=== PATIENT | female | born 1965 | race Caucasian/White ===

== ENCOUNTER 2017-04-22 00:34 | Inpatient (IN) | payer OTHER ==
[~2017-04-22] VITALS: Ht 165.1 cm; Wt 60.3 kg
--- NOTE | 2017-04-22 00:50 | NUR ---
ERMD AT BEDSIDE TO EVALUATE PT.ERMD STATES HER INITIAL ASSESSMENT OF PTS FOOT IS BRUISED AND SWOLLEN.UNSURE IF CAUSED BY INFECTION OR SOME TYPE OF TRAUMA.
--- NOTE | 2017-04-22 00:55 | NUR ---
pt presents with right foot swelling - pt reports its been this way for a couple of days - small darker area of redness noted at center of area of swelling - vs and ns wnl - pt reports pain at site and general nausea
[2017-04-22] MEDS ORDERED: ONDANSETRON ODT 4 MG TAB.RAPDIS SL ONE (01:00)
[2017-04-22] MEDS ORDERED: HYDROCODONE/APAP 5-325MG TABLET PO ONE ×2 (01:15→04:00)
[2017-04-22] MEDS ORDERED: ONDANSETRON ODT 4 MG TAB.RAPDIS ONE (01:21)
[2017-04-22] MEDS ORDERED: HYDROCODONE/APAP 5-325MG TABLET ONE ×2 (01:29→04:12)
[2017-04-22 02:22] LABS: BILIRUBIN,DIRECT 0.2 mg/dL (0.0-0.2); BILIRUBIN,TOTAL 0.5 mg/dL (0.2-1.0); CREATININE 1.2 mg/dL (0.6-1.3); POTASSIUM 3.1 mmol/L (3.5-5.1); TOTAL PROTEIN, SERUM 8.2 g/dL (6.4-8.2)
[2017-04-22 02:30] LABS: BASOPHILS % (AUTO) 0.1 % (0.0-2.0); EOSINOPHILS % (AUTO) 0.1 % (0.0-7.0); HEMATOCRIT 32.2 % (31.2-41.9); LYMPHOCYTES # (AUTO) 1.1 K/uL (20.0-40.0); LYMPHOCYTES % (AUTO) 3.4 % (20.5-51.5); MEAN CORPUSCULAR HEMOGLOBIN 31.1 uug (24.7-32.8); MEAN CORPUSCULAR HGB CONC 34 g/dL (32.3-35.6); MONOCYTES # (AUTO) 2.2 K/uL (2.0-10.0); MONOCYTES % (AUTO) 7.1 % (0.0-11.0); NEUTROPHILS # (AUTO) 27.8 K/uL (1.8-8.9); NEUTROPHILS % (AUTO) 89.3 % (38.5-71.5); PLATELET COUNT (AUTO) 458 K/uL (179-408); RED BLOOD CELL COUNT(AUTO) 3.54 MIL/uL (3.63-4.92)
[2017-04-22 02:46] LABS: WHITE BLOOD COUNT (AUTO) 31.2 K/uL (3.8-11.8)
[2017-04-22] MEDS ORDERED: PIPERACILLIN SODIUM/TAZOBACTAM 3.375 G in IV DEXTROSE 5% 50 ML IV ONE (03:00)
[2017-04-22] MEDS ORDERED: VANCOMYCIN IV 200 ML IV ONE (03:00)
[2017-04-22] MEDS ORDERED: IV NORMAL SALINE 1000 ML BAG IV ONE (03:00)
--- NOTE | 2017-04-22 03:15 | NUR ---
Pt's lab results reporting - wbc elevated - new orders received for IV and antibiotics - new iv site placed RFA #20 - saline locked - NS up at 300 ml/hour - starting antibiotics as per order - pt denies allergies to any antibiotics - tolerating infusion uneventful - close observation contnues
[2017-04-22] MEDS ORDERED: PIPERACILLIN/TAZOBACTAM/D5W 50 ML IV ONE (03:39)
[2017-04-22] MEDS ORDERED: VANCOMYCIN IV 200 ML ONE (03:39)
[2017-04-22 04:00] VITALS: BP 124/80
--- NOTE | 2017-04-22 04:00 | NUR ---
pt reporting pain returning to 9 out of 10 from a previous 7 ( post po med for pain ) pt medicated again per order - vs and ns and all sites same - med effect pending
--- NOTE | 2017-04-22 04:05 | NUR ---
zosyn complete - Vnacomycin one gram ivpb in 200 ml started at 130 ml/hour - effect pending - vs and ns and all sites same
--- NOTE | 2017-04-22 04:06 | NUR ---
confirmation vancomycin to be one gram iv - started infusing
[2017-04-22] MEDS ORDERED: MAGNESIUM HYDROXIDE 30 ML LIQUID UDC PO PRN (05:15)
[2017-04-22] MEDS ORDERED: MORPHINE SULFATE 2 MG/1 ML DISP.SYRIN IV PRN (05:15)
[2017-04-22] MEDS ORDERED: ONDANSETRON 4 MG/2 ML VIAL IV PRN (05:15)
[2017-04-22] MEDS ORDERED: Z GUARD REMEDY PASTE 57 GM TUBE TOP PRN (05:15)
--- NOTE | 2017-04-22 05:20 | NUR ---
report provided to Epi ( Rn ) - pt to be admitted to Tele - room 224 - reviewed hx - presentation - and interventions provided and resultant effect - pt conversing uneventfully without grimace - vs and ns all sites consistant - recent conversations between our ER MD ( Dr Del Rosario ) and [facility] MD ( Dr Booth ) with resultant discussion regarding pt's stability - both agree to admit pt to [place] to assure pt's stability - pt reports low cost inventory in purse - nagy counted + 2 cell phones + cloths
--- NOTE | 2017-04-22 05:40 | NUR ---
confirmed with ER MD pt does not meet code sepsis per lactic acid level - antibiotics complete - saline bolus initated afterward - pt with without change
--- NOTE | 2017-04-22 05:47 | NUR ---
Pt. admitted to TELEMETRY, ROOM 224 , under care of DRAKE BOLDEN NP Belongs List completed. DX RLE CELLULITIS/SEPSIS
[2017-04-22] MEDS: IV NS 1000 ML 1,000 ML IV PRN (05:56)
[2017-04-22 06:09] LABS: BAND % (MANUAL) 5 % (0-10); LYMPHOCYTES % (MANUAL) 6 % (20-40); MONOCYTES % (MANUAL) 7 % (2-10); NEUTROPHILS % (MANUAL) 82 % (42-75)
--- NOTE | 2017-04-22 07:00 | NUR ---
Admitted this 51 y/o female patient via gurney, awake alert oriented, no SOB denies chest pain. Placed on Telemetry as ordered Dx. Sepsis, Right foot cellulitis. Sinus rhythm sinus tachy on the monitor. Initial assessment & personal belongings checklist done. Patient still c/o right foot pain, 10/10 level of pain. Right foot swelling noted, no open wound. Medicated w/ Morphine 2mg IVP as ordered. IVF NS at 75 ml/hr started. Right wrist IV line intact no signs of infiltrations. Vital signs are stable, afebrile. Will continue to monitor.
--- NOTE | 2017-04-22 07:20 | NUR ---
RECEIVED REPORT FROM LEARNING DISABILITIES SPECIALIST NURSE, PATIENT IN BED AWAKE, CRYING DUE TO PAIN. PATIENT HAD ALREADY RECEIVED PAIN MEDICATION. BED IN LOW POSITION, SIDE RAILS UP X2. ALL NEEDS MET, OFFERED PILLOWS TO ELEVATE FOOT.
[2017-04-22] MEDS: PIPERACILLIN/TAZOBACTAM/D5W 50 ML IV SCH ×3 (09:07→20:26)
[2017-04-22] MEDS: LACTOBACILLUS RHAMNOSUS GG 1 EACH CAPSULE PO SCH ×2 (09:08→20:35)
--- NOTE | 2017-04-22 09:49 | NUR ---
Clinical Pharmacy Note: Vancomycin Pharmacy to Dose Subjective; To start vanco in this 51 y/o female for indication of cellulitis. She received vanco 1gm IVPB x1 in Ed on 04/22 at 0400 Objective: height: 65'' weight: 133 lb BUN 15 Scr 1.2 wbc 31.2 temp 98.5 Assessment/Plan Will start vanco 1gm IVPB q22h for predicted vanco trough level of 15.5 mcg/ml at steady state. Second dose is due on 04/23 at 0200. Plan to check vano trough level before 4th dose (not yet ordered). Pharmacy will check renal function & adjust dose if needed
[2017-04-22] MEDS: MORPHINE SULFATE 4 MG/1 ML DISP.SYRIN IV PRN ×3 (10:05→20:26)
[2017-04-22] MEDS ORDERED: ENOXAPARIN SODIUM 30 MG/0.3 ML DISP.SYRIN SUBCUT SCH (10:30)
[2017-04-22 11:03] VITALS: BP 121/80
[2017-04-22] MEDS: ENOXAPARIN SODIUM 40 MG/0.4 ML DISP.SYRIN SQ SCH (11:43)
[2017-04-22] MEDS: POTASSIUM CHLORIDE 10 MEQ, LIDOCAINE-MPF 1% 1 ML in IV DEXTROSE 5% 100 ML IV SCH ×4 (12:19→13:53)
[2017-04-22] MEDS: IBUPROFEN 400 MG TABLET PO PRN ×2 (13:12→23:58)
[2017-04-22 15:10] VITALS: BP 129/75
[2017-04-22 17:58] LABS: *BILIRUBIN,URIN NEGATIVE (NEGATIVE); *BLOOD, URINE 1+ (NEGATIVE); *CLARITY,URINE SLIGHTLY CLOUDY (CLEAR); *COLOR,URINE YELLOW (YELLOW); *KETONES,URINE NEGATIVE (NEGATIVE); *PROTEIN,URINE TRACE (NEGATIVE); LEUKOCYTE ESTERASE ,URINE 2+ (NEGATIVE); NITRITE, URINE NEGATIVE (NEGATIVE); UGLUCOSE NEGATIVE (NEGATIVE)
[2017-04-22 18:10] LABS: BACTERIA,URINE FEW /HPF (NONE SEEN); SQUAMOUS EPITHELIAL CELL,UR MODERATE /HPF (NONE SEEN); WBC,URINE 20-50 /HPF (0-3)
--- NOTE | 2017-04-22 19:41 | NUR ---
Patient currently in bed, compliant with care today. Eating meals and being sarcastic, taking medications. Bed in low position, side rails up x2, sitter at bedside.
[2017-04-22 20:24] VITALS: BP 132/68
[2017-04-23 00:22] VITALS: BP 137/71
[2017-04-23] MEDS: MORPHINE SULFATE 4 MG/1 ML DISP.SYRIN IV PRN ×6 (01:22→21:57)
[2017-04-23] MEDS: IV NS 1000 ML 1,000 ML IV PRN (01:22)
[2017-04-23] MEDS ORDERED: VANCOMYCIN IV 1 G in PREMIXED 0 EACH IV SCH (02:00)
[2017-04-23] MEDS: PIPERACILLIN/TAZOBACTAM/D5W 50 ML IV SCH ×3 (03:12→14:07)
[2017-04-23 04:00] VITALS: BP 114/57
[2017-04-23] MEDS: PANTOPRAZOLE SODIUM 40 MG TABLET.DR PO SCH (06:00)
--- NOTE | 2017-04-23 06:00 | NUR ---
Pt slept well, in no distress, no sob. Patient c/o of pain on right foot. Right foot red, swollen, no drainage noted. Left cheek small wound noted with no drainage. Pain med administered as ordered. IVF infusing, no infiltration. Patient uses the bed monsivais. Bed alarm on, will continue to monitor.
[2017-04-23 06:14] LABS: BASOPHILS % (AUTO) 0.2 % (0.0-2.0); EOSINOPHILS # (AUTO) 0.1 K/uL (0.0-0.7); EOSINOPHILS % (AUTO) 0.5 % (0.0-7.0); HEMOGLOBIN 10.5 g/dL (10.9-14.3); LYMPHOCYTES % (AUTO) 3.2 % (20.5-51.5); MEAN CORPUSCULAR HEMOGLOBIN 30.6 uug (24.7-32.8); MEAN CORPUSCULAR HGB CONC 34 g/dL (32.3-35.6); MEAN CORPUSCULAR VOLUME 90.2 fL (75.5-95.3); MONOCYTES # (AUTO) 1.4 K/uL (2.0-10.0); MONOCYTES % (AUTO) 4.8 % (0.0-11.0); NEUTROPHILS # (AUTO) 27.5 K/uL (1.8-8.9); NEUTROPHILS % (AUTO) 91.3 % (38.5-71.5); PLATELET COUNT (AUTO) 390 K/uL (179-408); RED BLOOD CELL COUNT(AUTO) 3.44 MIL/uL (3.63-4.92)
[2017-04-23] MEDS ORDERED: MORPHINE SULFATE 2 MG/1 ML DISP.SYRIN ONE (06:14)
--- NOTE | 2017-04-23 06:20 | NUR ---
Critical lab WBC 30.1 reported by Shemar from Lab. Protocol followed. Pt is asleep, easily arousable, no distress, no SOB. Temp 99.3F. Cooling measures done. Will continue to monitor.
[2017-04-23 06:23] LABS: WHITE BLOOD COUNT (AUTO) 30.1 K/uL (3.8-11.8)
[2017-04-23 06:31] LABS: CARBON DIOXIDE 24 mmol/L (21-32); CHLORIDE 100 mmol/L (98-107); CHOLESTEROL 81 mg/dL (<200); GLUCOSE 187 mg/dL (74-106); MAGNESIUM 2.3 mg/dL (1.8-2.4); PHOSPHOROUS 2.5 mg/dL (2.5-4.9); TRIGLYCERIDES 96 MG/DL (30-150); UREA NITROGEN, BLOOD 13 mg/dL (7-18)
[2017-04-23 06:32] LABS: HDL CHOLESTEROL < 10 mg/dL (40-60)
[2017-04-23 06:37] LABS: THYROID STIMULATING HORMONE 0.935 mIU/mL (0.358-3.740)
[2017-04-23 06:59] LABS: BAND % (MANUAL) 12 % (0-10); LYMPHOCYTES % (MANUAL) 1 % (20-40); MONOCYTES % (MANUAL) 2 % (2-10); NEUTROPHILS % (MANUAL) 85 % (42-75)
--- NOTE | 2017-04-23 08:00 | NUR ---
RECEIVED PATIENT IN BED AWAKE ALERT AND ORIENTED RIGHT FOOT SWOLLEN WITH ERYTHEMA ELEVATED ON THE PILLOW AND PATIENT ENCOURAGED TO KEEP LEG ELEVATED AND SHE EXPRESSED UNDERSTANDING.
--- NOTE | 2017-04-23 08:30 | NUR ---
PATIENT REMAINS ON IV ANTIBIOTICS ORDERED WITH NO ADVERSE OR ALLERGIC REACTIONS AT THIS TIME ASSISTED PATIENT INTO THE TOILET USING A FRONT WHEEL WALKER PATIENT STATED THAT SHE NORMALLY WILL USE THE BEDPAN BUT SHE WANTS TO MOVE HER BOWELS.PATIENT INSTRUCTED TO USE THE CALL BUTTON IN THE BATHROOM FOR ASSISTANCE WHEN SHE WAS DONE AND SHE EXPRESSED UNDERSTANDING.
[2017-04-23] MEDS: LACTOBACILLUS RHAMNOSUS GG 1 EACH CAPSULE PO SCH ×2 (08:32→20:51)
[2017-04-23] MEDS: ENOXAPARIN SODIUM 40 MG/0.4 ML DISP.SYRIN SQ SCH (08:35)
--- NOTE | 2017-04-23 09:59 | NUR ---
PHYSICAL THERAPY HERE TO SEE PATIENT FOR EVALUATION BUT PATIENT DECLINED STATED MAYBE TOMORROW.
--- NOTE | 2017-04-23 10:45 | NUR ---
CALL RECEIVED FROM [facility] FOR POSITIVE BLOOD CULTURE IN [facility] SEEN ON GRAM STAIN DR RASHEEDA GUARDADO AWARE WITH NO NEW ORDERS AT THIS TIME.
[2017-04-23 11:09] VITALS: BP 141/71
--- NOTE | 2017-04-23 13:00 | NUR ---
PATIENT SEEN AND EXAMINED BY DR RASHEEDA GUARDADO WITH NEW ORDERS FOR POTASSIUM REPLACEMENTS AND NOTED.
[2017-04-23] MEDS ORDERED: POTASSIUM CHLORIDE 20 MEQ TAB.PRT.SR PO ONE ×2 (13:15→17:00)
[2017-04-23 15:18] VITALS: BP 139/68
--- NOTE | 2017-04-23 15:59 | NUR ---
Clinical Pharmacy Note: Vancomycin Pharmacy to Dose Subjective; To continue vanco in this 51 y/o female for indication of cellulitis. Objective: height: 65'' weight: 133 lb BUN 13 Scr 1.0 wbc 30.1 temp 99.3 Assessment/Plan Will continue vanco 1gm IVPB q22h for predicted vanco trough level of 15.5 mcg/ml at steady state. Third dose is due on 04/24 at 0000. Plan to check vano trough level before 4th dose (not yet ordered). Pharmacy will check renal function & adjust dose if needed
--- NOTE | 2017-04-23 17:38 | NUR ---
POTASSIUM COMPLETED ORDERED PAIN MEDICATIONS ORDERED AND HELPFUL ENCOURAGED TO KEEP ELEVATING HER RIGHT FOOT TO REDUCE SWELLING AND SHE EXPRESSED UNDERSTANDING.
--- NOTE | 2017-04-23 18:05 | NUR ---
IV SITE INFILTERATED RESTARTED TO HER RIGHT ARM WITH FEW ATTEMPTS AND CONTINUES ON IVF ORDERED.
[2017-04-23 20:00] VITALS: BP 133/69
--- NOTE | 2017-04-23 20:00 | NUR ---
nsg: pt received comfortably sleeping. no distress noted. right lower extremity elevated on 2 pillows. on cont ivf. bed alarm on. call light within reach.
[2017-04-23] MEDS: CEFTRIAXONE 1 G in IV DEXTROSE 5% 50 ML IV SCH (20:52)
[2017-04-23] MEDS: VANCOMYCIN IV 1 G in PREMIXED 0 EACH IV SCH (21:57)
--- NOTE | 2017-04-24 | NUR ---
nsg: no change in condition.
[2017-04-24] MEDS: IV NS 1000 ML 1,000 ML IV PRN ×2 (01:31→14:37)
[2017-04-24] MEDS: MORPHINE SULFATE 4 MG/1 ML DISP.SYRIN IV PRN ×6 (01:53→22:36)
[2017-04-24 05:40] VITALS: BP 136/68
--- NOTE | 2017-04-24 06:00 | NUR ---
nsg: pt still c/o right foot pain. medicated with morphine 2 mg ivp. v/s stable. cont to monitor.
[2017-04-24] MEDS: PANTOPRAZOLE SODIUM 40 MG TABLET.DR PO SCH (06:25)
[2017-04-24] MEDS ORDERED: MORPHINE SULFATE 2 MG/1 ML DISP.SYRIN ONE (06:36)
[2017-04-24 06:46] LABS: BASOPHILS # (AUTO) 0.1 K/uL (0.0-8.0); BASOPHILS % (AUTO) 0.2 % (0.0-2.0); EOSINOPHILS # (AUTO) 0.2 K/uL (0.0-0.7); EOSINOPHILS % (AUTO) 0.8 % (0.0-7.0); HEMATOCRIT 29.8 % (31.2-41.9); HEMOGLOBIN 10.2 g/dL (10.9-14.3); LYMPHOCYTES % (AUTO) 8.1 % (20.5-51.5); MEAN CORPUSCULAR HEMOGLOBIN 30.7 uug (24.7-32.8); MEAN CORPUSCULAR HGB CONC 34 g/dL (32.3-35.6); MEAN CORPUSCULAR VOLUME 90.1 fL (75.5-95.3); MONOCYTES # (AUTO) 1.2 K/uL (2.0-10.0); MONOCYTES % (AUTO) 4.9 % (0.0-11.0); NEUTROPHILS # (AUTO) 21.4 K/uL (1.8-8.9); PLATELET COUNT (AUTO) 412 K/uL (179-408); WHITE BLOOD COUNT (AUTO) 24.8 K/uL (3.8-11.8)
--- NOTE | 2017-04-24 07:30 | NUR ---
RECEIVED ASLEEP EASILY AROUSES ON ROUNDS REMAIN ON IVF ORDERED WITH NO S/S OF INFILTERATION ON SITE PATIENT IS COMFORTABLE AT THIS TIME RIGHT FOOT ELEVATED ON 2 PILLOWS TO DECREASE SWELLING WILL CONTINUE TO OBSERVE.
[2017-04-24 07:34] LABS: CREATININE 0.6 mg/dL (0.6-1.3); PHOSPHOROUS 2.3 mg/dL (2.5-4.9); POTASSIUM 3.2 mmol/L (3.5-5.1)
[2017-04-24] MEDS: VANCOMYCIN IV 1 G in PREMIXED 0 EACH IV SCH ×2 (08:14→20:26)
[2017-04-24] MEDS: LACTOBACILLUS RHAMNOSUS GG 1 EACH CAPSULE PO SCH ×2 (08:15→20:36)
[2017-04-24] MEDS: ENOXAPARIN SODIUM 40 MG/0.4 ML DISP.SYRIN SQ SCH (08:18)
--- NOTE | 2017-04-24 08:40 | NUR ---
RECEIVED A CALL FROM [employer] RE POSITIVE MRSA IN THE BLOOD DR ESTES NOTIFIED AND PATIENT PLACED AND EDUCATED ON CONTACT ISOLATION.
[2017-04-24 09:32] LABS: EOSINOPHILS % (MANUAL) 2 % (0-8); LYMPHOCYTES % (MANUAL) 11 % (20-40); MONOCYTES % (MANUAL) 3 % (2-10); NEUTROPHILS % (MANUAL) 84 % (42-75)
--- NOTE | 2017-04-24 10:40 | NUR ---
PATIENT SEEN AND EXAMINED BY [employer] MACHINE TENDER AWARE OF K 3.2 AND PHOS 2.3 WITH NEW ORDERS AND NOTED.
[2017-04-24] MEDS ORDERED: NEUTRA PHOS PACKET PO ONE (11:15)
[2017-04-24] MEDS ORDERED: POTASSIUM CHLORIDE 20 MEQ TAB.PRT.SR PO ONE (11:15)
[2017-04-24 11:38] VITALS: BP 129/71
[2017-04-24] MEDS: ACETAMINOPHEN 325 MG TABLET PO PRN ×2 (12:43→20:36)
--- NOTE | 2017-04-24 13:13 | NUR ---
TEMP IS 100.8 MEDICATED WITH TYLENOL ORDERED WITH COOLING MEASURES CALLED AND NOTIFIED [employer] SECURITIES TELLER WITH ORDER TO INCREASE HER IVF AND NOTED.
--- NOTE | 2017-04-24 16:08 | NUR ---
Clinical Pharmacy Note: Vancomycin Pharmacy to Dose Subjective; To continue vanco in this 51 y/o female for indication of cellulitis. Objective: height: 65'' weight: 133 lb BUN 9 Scr 0.6 wbc 24.8 temp 99.3 Assessment/Plan Will continue vanco 1gm IVPB q12h for predicted vanco trough level of 16.5 mcg/ml at steady state. Third dose is due tonight at 2000. Plan to check vano trough level before 4th dose (ordered for tomorrow at 0730). Pharmacy will check renal function & adjust dose if needed.
[2017-04-24 16:12] VITALS: BP 136/72
--- NOTE | 2017-04-24 18:30 | NUR ---
RESTING WITH PAIN MEDICATION LEFT FOOT CONTINUED TO BE ELEVATED MADE COMFORTABLE.
--- NOTE | 2017-04-24 19:30 | NUR ---
PT IN ROOM ALERT ASLEEP IN NO ACUTE DISTRESS. RIGHT FOOT CELLULITIS STILL PRESENT REDDENED AND SWOLLEN. CONTINUES TO RECEIVE MORPHINE FOR PAIN MANAGEMENT Q 4 HRS PRN. CALL LIGHT PLACED WITHIN REACH. MAINTAINING CONTACT PRECAUTION AT THIS TIME. CONTINUE TO MONITOR.
--- NOTE | 2017-04-24 20:30 | NUR ---
Pt's temp noted 102.7. Tylenol 650mg given PO. Cooling measures applied. Continue to monitor.
[2017-04-24 20:55] VITALS: BP 139/64
[2017-04-24] MEDS: CEFTRIAXONE 1 G in IV DEXTROSE 5% 50 ML IV SCH (21:33)
--- NOTE | 2017-04-25 01:00 | NUR ---
PT IN ROOM ASLEEP IN NO ACUTE DISTRESS. TEMP NOTED 101.9. CONTINUING ON IV HYDRATION. PT REFUSES COOLING MEASURES. CONTINUE TO MONITOR. CALL LIGHT PLACED WITHIN REACH. ENCOURAGED TO INCREASE FLUID INTAKE.
[2017-04-25] MEDS: MORPHINE SULFATE 4 MG/1 ML DISP.SYRIN IV PRN ×6 (02:30→22:48)
[2017-04-25] MEDS: ACETAMINOPHEN 325 MG TABLET PO PRN ×2 (02:30→15:12)
[2017-04-25] MEDS: IV NS 1000 ML 1,000 ML IV PRN ×2 (02:37→14:54)
[2017-04-25 04:00] VITALS: BP 130/52
[2017-04-25] MEDS ORDERED: MORPHINE SULFATE 2 MG/1 ML DISP.SYRIN ONE (05:55)
--- NOTE | 2017-04-25 06:00 | NUR ---
PT ALERT AWAKE IN ROOM C/O PAIN TO RIGHT FOOT. VANCOMYCIN TROUGH TO BE DONE 0730. ABLE TO VOID UP TO 8X OVERNIGHT. CONTINUES ON IV HYDRATION NS @100ML/HR. NO REACTION TO CURRENT IV ABX THERAPY. TEMP NOTED 100.3. REFUSES COOLING MEASURES. ENCOURAGED TO CONTINUE FLUID INTAKE. CALL LIGHT PLACED WITHIN REACH. CONTINUE TO MONITOR.
[2017-04-25] MEDS: PANTOPRAZOLE SODIUM 40 MG TABLET.DR PO SCH (06:49)
--- NOTE | 2017-04-25 07:57 | NUR ---
RECEIVED PATIENT IN BED AWAKE ALERT AND ORIENTED STATED COMFORTABLE AT THIS TIME S/P PAIN MEDICATION FOR RIGHT FOOT CELLULITIS ELEVATED ON THE PILLOW TO DECREASE SWELLIN RIGHT FOOT STILL HAS ERYTHEMA CALL LIGHTS AND PERSONAL BELONGINGS PLACED WITHIN EASY REACH AND WILL CONTINUE TO OBSERVE.
[2017-04-25 08:04] LABS: BASOPHILS # (AUTO) 0.1 K/uL (0.0-8.0); BASOPHILS % (AUTO) 0.3 % (0.0-2.0); EOSINOPHILS % (AUTO) 0.2 % (0.0-7.0); HEMATOCRIT 27.7 % (31.2-41.9); HEMOGLOBIN 9.3 g/dL (10.9-14.3); LYMPHOCYTES # (AUTO) 1.9 K/uL (20.0-40.0); LYMPHOCYTES % (AUTO) 8.7 % (20.5-51.5); MEAN CORPUSCULAR HEMOGLOBIN 30.2 uug (24.7-32.8); MEAN CORPUSCULAR HGB CONC 34 g/dL (32.3-35.6); MEAN CORPUSCULAR VOLUME 89.6 fL (75.5-95.3); MONOCYTES # (AUTO) 1.7 K/uL (2.0-10.0); MONOCYTES % (AUTO) 7.9 % (0.0-11.0); NEUTROPHILS # (AUTO) 17.7 K/uL (1.8-8.9); NEUTROPHILS % (AUTO) 82.9 % (38.5-71.5); PLATELET COUNT (AUTO) 425 K/uL (179-408); RED BLOOD CELL COUNT(AUTO) 3.09 MIL/uL (3.63-4.92); WHITE BLOOD COUNT (AUTO) 21.4 K/uL (3.8-11.8)
[2017-04-25 08:45] LABS: BILIRUBIN,TOTAL 0.4 mg/dL (0.2-1.0); CREATININE 0.7 mg/dL (0.6-1.3); MAGNESIUM 1.8 mg/dL (1.8-2.4); PHOSPHOROUS 2.7 mg/dL (2.5-4.9)
[2017-04-25 08:47] LABS: POTASSIUM 2.9 mmol/L (3.5-5.1)
[2017-04-25] MEDS: ENOXAPARIN SODIUM 40 MG/0.4 ML DISP.SYRIN SQ SCH (09:18)
[2017-04-25] MEDS: LACTOBACILLUS RHAMNOSUS GG 1 EACH CAPSULE PO SCH ×2 (09:19→21:16)
[2017-04-25] MEDS: VANCOMYCIN IV 1 G in PREMIXED 0 EACH IV SCH ×2 (10:01→16:59)
[2017-04-25] MEDS ORDERED: POTASSIUM CHLORIDE 20 MEQ TAB.PRT.SR PO ONE (10:15)
--- NOTE | 2017-04-25 11:03 | NUR ---
TC ABDOMEN AND PELVIS COMPLETED ORDERED
[2017-04-25 11:26] LABS: BAND % (MANUAL) 6 % (0-10); LYMPHOCYTES % (MANUAL) 10 % (20-40); MONOCYTES % (MANUAL) 9 % (2-10); NEUTROPHILS % (MANUAL) 75 % (42-75)
[2017-04-25 11:54] VITALS: BP 142/64
[2017-04-25 12:27] LABS: IRON, SERUM 18 ug/dL (50-175)
[2017-04-25] MEDS ORDERED: MAGNESIUM HYDROXIDE 30 ML LIQUID UDC PO ONE (14:30)
[2017-04-25] MEDS ORDERED: MAGNESIUM HYDROXIDE 30 ML LIQUID UDC PO PRN (14:30)
--- NOTE | 2017-04-25 14:51 | NUR ---
Clinical Pharmacy Note: Vancomycin Pharmacy to Dose Subjective; To continue vanco in this 51 y/o female for indication of cellulitis. Objective: height: 65'' weight: 133 lb BUN 14 Scr 0.7 wbc 21.4 temp 100.3 Trough: 5.1 today at 0748 Assessment/Plan Rescheduled vanco regimen from 1gm q12hr to 1gm q7hr for new expected trough of 14.3. Trough due tomorrow at 0630, RN to hold dose if >20. Will check in am and adjust as needed. Will follow
[2017-04-25] MEDS: DOCUSATE SODIUM 100 MG CAPSULE PO SCH ×2 (14:52→21:16)
[2017-04-25 15:00] VITALS: BP 134/63
--- NOTE | 2017-04-25 15:12 | NUR ---
TEMP IS 102.9 TYLENOL GIVEN AND COOLING MEASURES STARTED EXCESS LINEN REMOVED AND PATIENT ENCOURAGED TO DRINK MORE FLUIDS AND SHE EXPRESSED UNDERSTANDING.
--- NOTE | 2017-04-25 15:30 | NUR ---
NOTED SEROUS DRAINAGE FROM THE PATIENTS RIGHT FOOT SPECIMEN OBTAINED ORDERED AND SENT TO THE LAB AND DRESSING APPLIED WITH KIRLIX AND FOOT ELEVATED.
--- NOTE | 2017-04-25 16:27 | NUR ---
POOR VEINOUS ACCESS MD AWARE WITH ORDER TO INSERT MID LINE EDDIE THE MIDLINE RN HERE AWARE AND WILL INSERT ONE.
--- NOTE | 2017-04-25 17:59 | NUR ---
MID LINE GAUGE 18 INSERTED TO HER LEFT UPPER ARM PATENT WITH IVF AND IV ANTIBIOTICS ORDERED WITH NO ADVERSE OR ALLERGIC REACTIONS AT THIS TIME.
--- NOTE | 2017-04-25 19:30 | NUR ---
Received patient laying in bed. Alert and verbally responsive. Able to make needs known. Denies any pain and discomfort. No acute distress. No SOB. Left upper arm Midline patent and intact. Infusing IVF 0.9% NS at 100ml/hr. Kept clean and dry. Patient with right foot cellulitis. Dressing intact. All needs attended to promptly. call light within reach. Will continue to monitor.
[2017-04-25 20:00] VITALS: BP 147/63
[2017-04-25] MEDS: CEFTRIAXONE 1 G in IV DEXTROSE 5% 50 ML IV SCH (21:16)
[2017-04-26] VITALS: BP 151/73
[2017-04-26] MEDS: VANCOMYCIN IV 1 G in PREMIXED 0 EACH IV SCH ×3 (00:09→18:13)
--- NOTE | 2017-04-26 00:27 | NUR ---
Urine culture collected as ordered and dropped off to lab.
[2017-04-26] MEDS ORDERED: MORPHINE SULFATE 2 MG/1 ML DISP.SYRIN ONE (03:12)
[2017-04-26] MEDS: IV NS 1000 ML 1,000 ML IV PRN ×2 (05:10→23:23)
[2017-04-26] MEDS: PANTOPRAZOLE SODIUM 40 MG TABLET.DR PO SCH (06:27)
--- NOTE | 2017-04-26 06:36 | NUR ---
Patient slept intermittently throughout the night. Pain medication given as needed. No acute distress noted. No SOB. Kept clean and dry. Right foot dressing is intact. Kept elevated with pillow. Left upper midline patent and intact. All needs attended to promptly. Call light within reach. Will continue to monitor.
[2017-04-26 07:27] LABS: BASOPHILS # (AUTO) 0.1 K/uL (0.0-8.0); BASOPHILS % (AUTO) 0.4 % (0.0-2.0); EOSINOPHILS # (AUTO) 0.1 K/uL (0.0-0.7); EOSINOPHILS % (AUTO) 0.4 % (0.0-7.0); HEMATOCRIT 25.7 % (31.2-41.9); HEMOGLOBIN 8.8 g/dL (10.9-14.3); LYMPHOCYTES # (AUTO) 2.2 K/uL (20.0-40.0); LYMPHOCYTES % (AUTO) 10.3 % (20.5-51.5); MEAN CORPUSCULAR HEMOGLOBIN 30.3 uug (24.7-32.8); MEAN CORPUSCULAR HGB CONC 35 g/dL (32.3-35.6); MEAN CORPUSCULAR VOLUME 87.9 fL (75.5-95.3); MONOCYTES # (AUTO) 1.9 K/uL (2.0-10.0); MONOCYTES % (AUTO) 8.9 % (0.0-11.0); NEUTROPHILS # (AUTO) 16.8 K/uL (1.8-8.9); PLATELET COUNT (AUTO) 453 K/uL (179-408); RED BLOOD CELL COUNT(AUTO) 2.92 MIL/uL (3.63-4.92)
[2017-04-26] MEDS: MORPHINE SULFATE 4 MG/1 ML DISP.SYRIN IV PRN ×4 (08:22→20:24)
[2017-04-26] MEDS: DOCUSATE SODIUM 100 MG CAPSULE PO SCH ×2 (08:26→20:30)
[2017-04-26] MEDS: LACTOBACILLUS RHAMNOSUS GG 1 EACH CAPSULE PO SCH ×2 (08:26→20:30)
[2017-04-26] MEDS: RIFAMPIN 300 MG CAPSULE PO SCH (08:26)
[2017-04-26] MEDS: ENOXAPARIN SODIUM 40 MG/0.4 ML DISP.SYRIN SQ SCH (08:30)
[2017-04-26] MEDS ORDERED: FERROUS SULFATE 325 MG TABEC PO SCH (09:00)
[2017-04-26 10:28] LABS: BILIRUBIN,TOTAL 0.4 mg/dL (0.2-1.0); CREATININE 0.8 mg/dL (0.6-1.3); MAGNESIUM 1.7 mg/dL (1.8-2.4); PHOSPHOROUS 2.5 mg/dL (2.5-4.9); TOTAL PROTEIN, SERUM 6.1 g/dL (6.4-8.2)
--- NOTE | 2017-04-26 10:29 | NUR ---
Pt trough was not available. The 0600 blood draw hemolyzed and the blood could not be used. The lab was called again to draw labs on pt. Once the trough was available the vancomycin was given.
[2017-04-26 10:32] LABS: POTASSIUM 2.7 mmol/L (3.5-5.1)
[2017-04-26] MEDS ORDERED: MAGNESIUM HYDROXIDE 30 ML LIQUID UDC PO PRN (11:00)
[2017-04-26] MEDS ORDERED: POTASSIUM CHLORIDE 50 ML IV SCH (11:00)
[2017-04-26] MEDS ORDERED: POTASSIUM CHLORIDE 10 MEQ in IV DEXTROSE 5% 50 ML IV SCH (11:00)
[2017-04-26] MEDS ORDERED: MAGNESIUM SULFATE/D5W 100 ML IV SCH (11:00)
[2017-04-26] MEDS: ACETAMINOPHEN 325 MG TABLET PO PRN (11:09)
[2017-04-26 11:51] VITALS: BP 143/71
[2017-04-26] MEDS ORDERED: POTASSIUM CHLORIDE 20 MEQ TAB.PRT.SR PO ONE ×2 (12:15→14:30)
--- NOTE | 2017-04-26 13:15 | NUR ---
Clinical Pharmacy Note: Vancomycin Pharmacy to Dose Subjective; To continue vanco in this 51 y/o female for indication of cellulitis. Objective: height: 65'' weight: 133 lb BUN 5 Scr 0.7 wbc 21 temp 97.6 vanco level ( drawn late due to blood hemolysis (not trough): 9.8 Assessment/Plan Since vanco trough level was not drawn at right time (dose was given late) re-scheduled the same regimen of vanco 1gm IVPB q7hr for today. Trough due tomorrow at 0700. Will check in am and adjust as needed. Will follow
[2017-04-26] MEDS ORDERED: POTASSIUM CHLORIDE 20 MEQ TAB.PRT.SR PO SCH (14:30)
[2017-04-26 16:50] VITALS: BP 131/69
--- NOTE | 2017-04-26 18:55 | NUR ---
pt observed resting and calm. Pt shows no signs of distress. Pt taught about non-pharmacological ways to manage pain. Pt verbalizes understanding.
[2017-04-26] MEDS: FERROUS SULFATE 325 MG TABEC PO SCH (20:30)
[2017-04-26] MEDS: CEFTRIAXONE 1 G in IV DEXTROSE 5% 50 ML IV SCH (20:30)
[2017-04-26 20:53] VITALS: BP 123/86
[2017-04-26] MEDS: HYDROCODONE/APAP 5-325MG TABLET PO PRN (23:23)
[2017-04-27] MEDS: MORPHINE SULFATE 4 MG/1 ML DISP.SYRIN IV PRN ×5 (00:52→22:34)
[2017-04-27] MEDS: VANCOMYCIN IV 1 G in PREMIXED 0 EACH IV SCH ×3 (00:52→17:02)
[2017-04-27 04:52] VITALS: BP 140/81
--- NOTE | 2017-04-27 06:00 | NUR ---
Patient slept well, in no distress, no sob. IVF infusing, no infiltration noted. IV antibiotic administered as ordered, no adverse reactio noted. Right foot dressing clean/dry/intact, no numbness/tingling, able to wiggle toes. Patient kept clean/dry. Wound on left cheek dry, no drainage/bleeding, no swelling noted. Safety measures in place, will continue to monitor.
[2017-04-27] MEDS: PANTOPRAZOLE SODIUM 40 MG TABLET.DR PO SCH (06:16)
--- NOTE | 2017-04-27 08:30 | NUR ---
DOCTOR CAME IN AND GOT CONSENT FOR IND OF THE RIGHT FOOT. PT UNDERSTANDS AND AGREES TO PROCEDURE. PROCEDURE WAS DONE AND COMPLETED AT 0946. PT SHOWS NO SIGNS OF RESPIRATORY DISTRESS, CALM, PAIN IS MANAGED WITH MORPHINE.
[2017-04-27] MEDS ORDERED: MORPHINE SULFATE 4 MG/1 ML DISP.SYRIN IV STA (08:33)
[2017-04-27] MEDS ORDERED: LIDOCAINE HCL 1% 20 ML VIAL IJ STA (08:35)
[2017-04-27] MEDS ORDERED: LIDOCAINE HCL 1% 20 ML VIAL TP STA ×2 (08:49→09:16)
[2017-04-27] MEDS: ENOXAPARIN SODIUM 40 MG/0.4 ML DISP.SYRIN SQ SCH ×2 (09:00→09:32)
--- NOTE | 2017-04-27 09:10 | NUR ---
PT HAD AN IND AND IS STABLE AFTER PROCEDURE. PRIOR TO PROCEDURE CONSENT WAS SIGNS AND TIME OUT FORM COMPLETED. PT IS RESTING, WITH NO SIGNS OF RESPIRATORY DISTRESS.
[2017-04-27] MEDS: RIFAMPIN 300 MG CAPSULE PO SCH (09:26)
[2017-04-27] MEDS: DOCUSATE SODIUM 100 MG CAPSULE PO SCH ×2 (09:26→22:33)
[2017-04-27] MEDS: FERROUS SULFATE 325 MG TABEC PO SCH ×2 (09:26→22:34)
[2017-04-27] MEDS: LACTOBACILLUS RHAMNOSUS GG 1 EACH CAPSULE PO SCH ×2 (09:26→22:33)
[2017-04-27] MEDS ORDERED: MORPHINE SULFATE 2 MG/1 ML DISP.SYRIN IV STA (09:32)
[2017-04-27 09:38] LABS: BASOPHILS # (AUTO) 0.2 K/uL (0.0-8.0); BASOPHILS % (AUTO) 1.1 % (0.0-2.0); EOSINOPHILS # (AUTO) 0.2 K/uL (0.0-0.7); EOSINOPHILS % (AUTO) 1.3 % (0.0-7.0); HEMATOCRIT 25.8 % (31.2-41.9); HEMOGLOBIN 8.9 g/dL (10.9-14.3); LYMPHOCYTES % (AUTO) 11.5 % (20.5-51.5); MEAN CORPUSCULAR HEMOGLOBIN 30.7 uug (24.7-32.8); MEAN CORPUSCULAR HGB CONC 34 g/dL (32.3-35.6); MEAN CORPUSCULAR VOLUME 89.3 fL (75.5-95.3); MONOCYTES # (AUTO) 1.8 K/uL (2.0-10.0); MONOCYTES % (AUTO) 10.5 % (0.0-11.0); NEUTROPHILS # (AUTO) 12.9 K/uL (1.8-8.9); NEUTROPHILS % (AUTO) 75.6 % (38.5-71.5); PLATELET COUNT (AUTO) 503 K/uL (179-408); RED BLOOD CELL COUNT(AUTO) 2.89 MIL/uL (3.63-4.92); WHITE BLOOD COUNT (AUTO) 17.1 K/uL (3.8-11.8)
[2017-04-27 09:45] LABS: BILIRUBIN,TOTAL 0.3 mg/dL (0.2-1.0); CREATININE 0.6 mg/dL (0.6-1.3); MAGNESIUM 1.8 mg/dL (1.8-2.4); PHOSPHOROUS 3.4 mg/dL (2.5-4.9); POTASSIUM 3.2 mmol/L (3.5-5.1); TOTAL PROTEIN, SERUM 6.2 g/dL (6.4-8.2)
[2017-04-27 10:55] VITALS: BP 144/71
[2017-04-27 12:01] LABS: BAND % (MANUAL) 7 % (0-10); EOSINOPHILS % (MANUAL) 1 % (0-8); LYMPHOCYTES % (MANUAL) 11 % (20-40); MONOCYTES % (MANUAL) 7 % (2-10); NEUTROPHILS % (MANUAL) 74 % (42-75)
[2017-04-27] MEDS ORDERED: POTASSIUM CHLORIDE 20 MEQ TAB.PRT.SR PO ONE (12:15)
--- NOTE | 2017-04-27 14:06 | NUR ---
Clinical Pharmacy Note: Vancomycin Pharmacy to Dose Subjective; To continue vanco in this 51 y/o female for indication of cellulitis. Objective: height: 65'' weight: 133 lb BUN 9 Scr 0.6 wbc 17.1 temp 99.2 Vancomycin trough 17.5 Assessment/Plan Since Vancomycin trough is within the range, will continue the same dose(1g every 7 hrs). Next dose was scheduled to give at 1030 instead of 0730 since lab released trough level later than 10 am. Will continue to monitor.
[2017-04-27] MEDS: IV NS 1000 ML 1,000 ML IV PRN (15:04)
[2017-04-27 15:06] VITALS: BP 130/72
[2017-04-27] MEDS ORDERED: POLYMYXIN B SULFATE 500,000 UNITS, BACITRACIN 50,000 UNITS, NORMAL SALINE 20 ML MC ONE ×3 (18:15)
--- NOTE | 2017-04-27 18:15 | NUR ---
PT OBSERVED RESTING IN BED CALM, NO SIGNS OF RESPIRATORY DISTRESS. PAIN IS MANAGED WITH MORPHINE. PT HAS BEEN NPO FOR PROCEDURE.
[2017-04-27] MEDS ORDERED: MIDAZOLAM HCL 2 MG/2 ML VIAL ONE (19:13)
[2017-04-27] MEDS ORDERED: FENTANYL CITRATE 100 MCG/2 ML AMPUL ONE ×3 (19:13→20:38)
[2017-04-27] MEDS ORDERED: BUPIVACAINE 0.25% 30 ML VIAL ONE (19:46)
[2017-04-27] MEDS ORDERED: LIDOCAINE HCL 1% 20 ML VIAL ONE (19:46)
[2017-04-27] MEDS ORDERED: CLINDAMYCIN PHOSPHATE 600 MG/4 ML VIAL ONE (19:46)
[2017-04-27] MEDS ORDERED: THROMBIN (BOVINE) 5,000 UNITS VIAL ONE (20:09)
[2017-04-27] MEDS ORDERED: MORPHINE SULFATE 2 MG/1 ML DISP.SYRIN IV PRN (20:45)
[2017-04-27] MEDS ORDERED: KETOROLAC TROMETHAMINE 15 MG INJ IVP PRN (20:45)
[2017-04-27] MEDS ORDERED: ZOLPIDEM 5 MG TABLET PO PRN (20:45)
[2017-04-27] MEDS ORDERED: HYDROMORPHONE 1 MG/1 ML DISP.SYRIN ONE (20:54)
[2017-04-27] MEDS ORDERED: IV NORMAL SALINE 1000 ML BAG IV ONE (20:59)
[2017-04-27] MEDS ORDERED: LIDOCAINE HCL 2% 20 ML VIAL MC ONE (20:59)
[2017-04-27] MEDS ORDERED: PROPOFOL 200 MG/20 ML BOTTLE IV ONE (20:59)
[2017-04-27] MEDS ORDERED: LIDOCAINE HCL 2% 20 ML VIAL ONE (20:59)
[2017-04-27] MEDS ORDERED: BUPIVACAINE PF 0.5% 30 ML VIAL ONE (21:00)
[2017-04-27] MEDS ORDERED: KETOROLAC TROMETHAMINE 30 MG INJ ONE (21:16)
[2017-04-27 21:45] VITALS: BP 156/72
[2017-04-27 22:15] VITALS: BP 150/61
[2017-04-27] MEDS: ACETAMINOPHEN 325 MG TABLET PO PRN (22:33)
[2017-04-27 22:45] VITALS: BP 147/70
[2017-04-28] VITALS: BP 149/73
[2017-04-28] MEDS: VANCOMYCIN IV 1 G in PREMIXED 0 EACH IV SCH ×4 (01:26→21:48)
[2017-04-28] MEDS: MORPHINE SULFATE 4 MG/1 ML DISP.SYRIN IV PRN ×5 (02:50→19:51)
[2017-04-28 04:00] VITALS: BP 138/75
[2017-04-28] MEDS ORDERED: MORPHINE SULFATE 2 MG/1 ML DISP.SYRIN ONE (06:42)
[2017-04-28] MEDS: PANTOPRAZOLE SODIUM 40 MG TABLET.DR PO SCH (06:49)
[2017-04-28 06:58] LABS: BASOPHILS # (AUTO) 0.1 K/uL (0.0-8.0); BASOPHILS % (AUTO) 0.5 % (0.0-2.0); EOSINOPHILS # (AUTO) 0.2 K/uL (0.0-0.7); EOSINOPHILS % (AUTO) 0.8 % (0.0-7.0); HEMATOCRIT 24.3 % (31.2-41.9); HEMOGLOBIN 8.2 g/dL (10.9-14.3); LYMPHOCYTES # (AUTO) 1.8 K/uL (20.0-40.0); LYMPHOCYTES % (AUTO) 9.1 % (20.5-51.5); MEAN CORPUSCULAR HGB CONC 34 g/dL (32.3-35.6); MEAN CORPUSCULAR VOLUME 89.2 fL (75.5-95.3); MONOCYTES # (AUTO) 1.2 K/uL (2.0-10.0); MONOCYTES % (AUTO) 5.9 % (0.0-11.0); NEUTROPHILS # (AUTO) 16.3 K/uL (1.8-8.9); NEUTROPHILS % (AUTO) 83.7 % (38.5-71.5); PLATELET COUNT (AUTO) 551 K/uL (179-408); RED BLOOD CELL COUNT(AUTO) 2.73 MIL/uL (3.63-4.92); WHITE BLOOD COUNT (AUTO) 19.5 K/uL (3.8-11.8)
[2017-04-28 07:10] LABS: BILIRUBIN,TOTAL 0.5 mg/dL (0.2-1.0); CREATININE 0.7 mg/dL (0.6-1.3); MAGNESIUM 1.9 mg/dL (1.8-2.4); PHOSPHOROUS 3.5 mg/dL (2.5-4.9); POTASSIUM 3.7 mmol/L (3.5-5.1); TOTAL PROTEIN, SERUM 6.1 g/dL (6.4-8.2)
--- NOTE | 2017-04-28 07:15 | NUR ---
Received patient asleep, lying on her side with no SOB, distress or display of any discomforts. Easily aroused. call light within her reach. Noted left upper arm midline intact with no signs and symptoms of infection. All needs were attended and anticipated. Will continue to monitor.
--- NOTE | 2017-04-28 08:00 | NUR ---
Received patients lab results with WBC: 19.5 no fever noted Called Dr. Prosper Pinedo to report the latest lab results. Awaiting for call back. Will continue to monitor the patient.
--- NOTE | 2017-04-28 08:03 | NUR ---
Received call back from Dr. Pinedo, reported latest lab results per MD, no new order. Patient informed.
[2017-04-28] MEDS: ENOXAPARIN SODIUM 40 MG/0.4 ML DISP.SYRIN SQ SCH (09:00)
--- NOTE | 2017-04-28 09:00 | NUR ---
RECEIVED REPORT FROM ORLIN SIERRA, PATIENT ROUNDS DONE, ON CONTACT ISOLATION FOR MRSA/STAPH AU IN THE BLOOD. PATIENT ON BED ASLEEP, NO ACUTE DISTRESS NOTED, W/ LEFT UPPER ARM MIDLINE 0.9 NS CURRENTLY ONGOING @ 100 ML/HR. S/P I&D 04/27/17 DRESSING INTACT ON RIGHT FOOT. AM MEDICATIONS GIVEN, WELL TOLERATED. NO COMPLAINTS OF PAIN AT THIS TIME. CONTACT PRECAUTIONS OBSERVED AT ALL TIMES.
[2017-04-28] MEDS: DOCUSATE SODIUM 100 MG CAPSULE PO SCH ×2 (09:01→20:00)
[2017-04-28] MEDS: RIFAMPIN 300 MG CAPSULE PO SCH (09:01)
[2017-04-28] MEDS: FERROUS SULFATE 325 MG TABEC PO SCH ×2 (09:01→20:00)
[2017-04-28] MEDS: LIDOCAINE 5% PATCH TD SCH (09:02)
[2017-04-28] MEDS: LACTOBACILLUS RHAMNOSUS GG 1 EACH CAPSULE PO SCH ×2 (09:19→20:00)
[2017-04-28 12:15] VITALS: BP 118/65
--- NOTE | 2017-04-28 14:12 | NUR ---
Clinical Pharmacy Note: Vancomycin Pharmacy to Dose Subjective; To continue vanco in this 51 y/o female for indication of cellulitis. Objective: height: 65'' weight: 133 lb BUN 10 Scr 0.7 wbc 19.5 temp 100 trough 17.5 yesterday Assessment/Plan Will continue the same dose(1g every 7 hrs) for today as renal function appears stable and trough within range. Will continue to monitor.
[2017-04-28 15:25] VITALS: BP 127/67
[2017-04-28 17:55] LABS: HEMATOCRIT 21.9 % (31.2-41.9)
[2017-04-28 18:04] LABS: HEMOGLOBIN 7.4 g/dL (10.9-14.3)
--- NOTE | 2017-04-28 18:43 | NUR ---
NOTED THAT HEMOGLOBIN VALUE IS LOW - 7.4, CALLED AND LEFT A MESSAGE INFORMING DR. JAMAL SAENZ. AWAITING CALLBACK.
[2017-04-28] MEDS: IV NS 1000 ML 1,000 ML IV PRN (18:46)
[2017-04-28 19:00] VITALS: BP 142/60
[2017-04-28] MEDS: ACETAMINOPHEN 325 MG TABLET PO PRN (21:48)
[2017-04-29] VITALS (7 sets, daily range): BP systolic 107–149; BP diastolic 51–80
[2017-04-29] MEDS: MORPHINE SULFATE 4 MG/1 ML DISP.SYRIN IV PRN ×6 (00:50→20:59)
--- NOTE | 2017-04-29 01:30 | NUR ---
Started blood transfusion as ordered, followed protocol, Pt is alert, VS stable, in no distress.
--- NOTE | 2017-04-29 01:45 | NUR ---
Blood transfusing, midline JAVON intact/patent. VS stable, no s/s of transfusion reaction. Pt in no distress, no sob, no c/o of chest pain. Protocol followed. Will continue to monitor closely.
--- NOTE | 2017-04-29 04:00 | NUR ---
Blood transfusion 1 unit RBC complete. Patient tolerated well, in no distress, no s/s of blood transfusion reaction. BP 149/80, HR 80, RR18, Temp 98.8, O2 100% RA.
[2017-04-29] MEDS: VANCOMYCIN IV 1 G in PREMIXED 0 EACH IV SCH ×3 (04:24→17:33)
[2017-04-29] MEDS ORDERED: MORPHINE SULFATE 2 MG/1 ML DISP.SYRIN ONE (05:21)
--- NOTE | 2017-04-29 06:00 | NUR ---
Patient slept well, in no distress. Dressing on right foot clean/dry/intact, no drainage/bleeding noted. Patient no c/o numbness/tingling on right foot. Patient is s/p blood transfusion 1 unit completed. Will endorse to day shift RN to administer 1 more unit of blood as ordered, unit of blood ready in the lab. VS stable, pt is afebrile. Call light within reach, will continue to monitor.
[2017-04-29] MEDS: PANTOPRAZOLE SODIUM 40 MG TABLET.DR PO SCH (06:12)
--- NOTE | 2017-04-29 07:00 | NUR ---
Post transfusion results for H/H is 9.06/02.1 Will endorse to day shift RN to call MD. 1 of 2 units of blood transfused and completed at 0400. 1 unit of blood ready in the lab.
[2017-04-29 07:01] LABS: BASOPHILS # (AUTO) 0.1 K/uL (0.0-8.0); BASOPHILS % (AUTO) 0.8 % (0.0-2.0); EOSINOPHILS # (AUTO) 0.3 K/uL (0.0-0.7); EOSINOPHILS % (AUTO) 2.7 % (0.0-7.0); LYMPHOCYTES # (AUTO) 1.9 K/uL (20.0-40.0); LYMPHOCYTES % (AUTO) 14.8 % (20.5-51.5); MEAN CORPUSCULAR HEMOGLOBIN 30.4 uug (24.7-32.8); MEAN CORPUSCULAR HGB CONC 34 g/dL (32.3-35.6); MEAN CORPUSCULAR VOLUME 90.3 fL (75.5-95.3); MONOCYTES # (AUTO) 0.7 K/uL (2.0-10.0); MONOCYTES % (AUTO) 5.3 % (0.0-11.0); NEUTROPHILS # (AUTO) 9.6 K/uL (1.8-8.9); NEUTROPHILS % (AUTO) 76.4 % (38.5-71.5); PLATELET COUNT (AUTO) 542 K/uL (179-408); RED BLOOD CELL COUNT(AUTO) 3.01 MIL/uL (3.63-4.92); WHITE BLOOD COUNT (AUTO) 12.5 K/uL (3.8-11.8)
[2017-04-29 07:06] LABS: HEMATOCRIT 27.1 % (31.2-41.9); HEMOGLOBIN 9.1 g/dL (10.9-14.3)
[2017-04-29 07:10] LABS: BILIRUBIN,TOTAL 0.3 mg/dL (0.2-1.0); CREATININE 0.7 mg/dL (0.6-1.3); MAGNESIUM 1.9 mg/dL (1.8-2.4); PHOSPHOROUS 3.5 mg/dL (2.5-4.9); POTASSIUM 3.3 mmol/L (3.5-5.1); TOTAL PROTEIN, SERUM 6.2 g/dL (6.4-8.2)
--- NOTE | 2017-04-29 08:00 | NUR ---
AWAKE ALERT AND ORIENTED X3, NO SIGNS OF DISTRESS. RIGHT FOOT WITH DRESSING INTACT NO SIGNS OF SATURATION FORM INSIDE OUT. DENIES NUMBNESS OR TINGLING SENSATION. AFEBRILE
[2017-04-29 08:36] LABS: BAND % (MANUAL) 5 % (0-10); EOSINOPHILS % (MANUAL) 2 % (0-8); LYMPHOCYTES % (MANUAL) 15 % (20-40); METAMYELOCYTES % 1 % (0-1); MONOCYTES % (MANUAL) 5 % (2-10); MYELOCYTES % 1 % (0-0); NEUTROPHILS % (MANUAL) 71 % (42-75)
[2017-04-29] MEDS: DOCUSATE SODIUM 100 MG CAPSULE PO SCH ×2 (08:51→20:53)
[2017-04-29] MEDS: RIFAMPIN 300 MG CAPSULE PO SCH (08:51)
[2017-04-29] MEDS: LIDOCAINE 5% PATCH TD SCH (08:51)
[2017-04-29] MEDS: FERROUS SULFATE 325 MG TABEC PO SCH ×2 (08:51→20:54)
[2017-04-29] MEDS: LACTOBACILLUS RHAMNOSUS GG 1 EACH CAPSULE PO SCH ×2 (09:12→20:53)
[2017-04-29] MEDS ORDERED: POTASSIUM CHLORIDE 20 MEQ TAB.PRT.SR PO ONE (10:30)
[2017-04-29] MEDS: IV NS 1000 ML 1,000 ML IV PRN (11:35)
--- NOTE | 2017-04-29 12:00 | NUR ---
SEEN BY DR SHARIF NOTED LABS WITH ORDERS
[2017-04-29] MEDS ORDERED: MORPHINE SULFATE 4 MG/1 ML DISP.SYRIN IV PRN (12:15)
--- NOTE | 2017-04-29 13:24 | NUR ---
SEEN BY DR WALL WITH ORDER FOR EGD ON Sunday
--- NOTE | 2017-04-29 14:40 | NUR ---
Clinical Pharmacy Note: Vancomycin Pharmacy to Dose Subjective; To continue vanco in this 51 y/o female for indication of cellulitis. Objective: height: 65'' weight: 133 lb BUN 11 Scr 0.7 wbc 12.5 temp 99.1 trough 17.5 04/27 Assessment/Plan Will continue the same dose(1g every 7 hrs) for today as renal function appears stable and trough was within range. Will continue to monitor.
--- NOTE | 2017-04-29 15:08 | NUR ---
CONTINUE WITH PAIN MANAGEMENT, REFUSED PHYSICAL THERAPY
--- NOTE | 2017-04-29 16:42 | NUR ---
CONTINUE WITH IV ANTIBIOTICS NO ALLERGY REACTION
--- NOTE | 2017-04-29 19:00 | NUR ---
Received patient, who is alert and awake during initial rounds. Continue on contact precautions. Denies pain or discomfort at this time.
[2017-04-30] MEDS: VANCOMYCIN IV 1 G in PREMIXED 0 EACH IV SCH ×4 (00:48→22:11)
[2017-04-30] MEDS: MORPHINE SULFATE 4 MG/1 ML DISP.SYRIN IV PRN ×7 (00:49→23:31)
[2017-04-30] MEDS: IV NS 1000 ML 1,000 ML IV PRN ×2 (00:51→14:17)
[2017-04-30 04:00] VITALS: BP 143/71
[2017-04-30] MEDS: PANTOPRAZOLE SODIUM 40 MG TABLET.DR PO SCH (05:52)
--- NOTE | 2017-04-30 06:33 | NUR ---
Slept good. Medicated for right foot pain x 3 with relief. No further complaint presented after. Remain afebrile. All needs attended and met. No significant event reported all night. Continue current plan of care.
[2017-04-30 06:59] LABS: CREATININE 0.7 mg/dL (0.6-1.3); MAGNESIUM 1.9 mg/dL (1.8-2.4); PHOSPHOROUS 3.9 mg/dL (2.5-4.9); POTASSIUM 3.7 mmol/L (3.5-5.1)
[2017-04-30 07:24] LABS: BASOPHILS # (AUTO) 0.2 K/uL (0.0-8.0); EOSINOPHILS # (AUTO) 0.4 K/uL (0.0-0.7); NEUTROPHILS # (AUTO) 11.8 K/uL (1.8-8.9); WHITE BLOOD COUNT (AUTO) 15.2 K/uL (3.8-11.8)
[2017-04-30 07:32] LABS: BASOPHILS % (AUTO) 1.2 % (0.0-2.0); EOSINOPHILS % (AUTO) 2.9 % (0.0-7.0); HEMATOCRIT 26.4 % (31.2-41.9); HEMOGLOBIN 9.1 g/dL (10.9-14.3); LYMPHOCYTES # (AUTO) 2.1 K/uL (20.0-40.0); LYMPHOCYTES % (AUTO) 13.7 % (20.5-51.5); MEAN CORPUSCULAR HGB CONC 35 g/dL (32.3-35.6); MEAN CORPUSCULAR VOLUME 89.8 fL (75.5-95.3); MONOCYTES # (AUTO) 0.7 K/uL (2.0-10.0); MONOCYTES % (AUTO) 4.6 % (0.0-11.0); NEUTROPHILS % (AUTO) 77.6 % (38.5-71.5); RED BLOOD CELL COUNT(AUTO) 2.94 MIL/uL (3.63-4.92)
[2017-04-30 07:33] LABS: PLATELET COUNT (AUTO) 695 K/uL (179-408)
--- NOTE | 2017-04-30 07:38 | NUR ---
RESTING FAIRLY, NO SIGNS OF DISTRESS. CONTINUE WITH PAIN MAGT
[2017-04-30] MEDS: FERROUS SULFATE 325 MG TABEC PO SCH ×2 (08:20→21:26)
[2017-04-30] MEDS: LACTOBACILLUS RHAMNOSUS GG 1 EACH CAPSULE PO SCH ×2 (08:21→21:26)
[2017-04-30] MEDS: RIFAMPIN 300 MG CAPSULE PO SCH (08:21)
[2017-04-30] MEDS: DOCUSATE SODIUM 100 MG CAPSULE PO SCH ×2 (08:21→21:26)
[2017-04-30] MEDS: LIDOCAINE 5% PATCH TD SCH (08:21)
[2017-04-30 11:35] VITALS: BP 129/67
--- NOTE | 2017-04-30 12:00 | NUR ---
CONTINUE WITH PAIN MANAGEMENT FOR RIGHT FOOT CELLULITIS
--- NOTE | 2017-04-30 15:59 | NUR ---
Clinical Pharmacy Note: Vancomycin Pharmacy to Dose Subjective; To continue vanco in this 51 y/o female for indication of cellulitis. Objective: height: 65'' weight: 133 lb BUN 12 Scr 0.7 wbc 15.2 temp 99.8 trough 17.5 04/27 Assessment/Plan Will continue the same dose(1g every 7 hrs) for today as renal function appears stable and trough was within range. Will continue to monitor.
[2017-04-30 16:16] VITALS: BP 116/56
[2017-04-30 17:41] LABS: *BILIRUBIN,URIN NEGATIVE (NEGATIVE); *BLOOD, URINE NEGATIVE (NEGATIVE); *CLARITY,URINE CLEAR (CLEAR); *COLOR,URINE ORANGE (YELLOW); *KETONES,URINE TRACE (NEGATIVE); *PROTEIN,URINE NEGATIVE (NEGATIVE); LEUKOCYTE ESTERASE ,URINE NEGATIVE (NEGATIVE); NITRITE, URINE NEGATIVE (NEGATIVE); UGLUCOSE NEGATIVE (NEGATIVE)
[2017-04-30 17:42] LABS: BACTERIA,URINE FEW /HPF (NONE SEEN); RBC,URINE 0-3 /HPF (0-3); SQUAMOUS EPITHELIAL CELL,UR FEW /HPF (NONE SEEN)
--- NOTE | 2017-04-30 18:00 | NUR ---
PATIENT REFUSED TO SIGN CONSENT FOR EGD IN AM AND ALSO REFUSED EGD PROCEDURE. DR WALL NOTIFIED AND CANCELLED PROCEDURE
[2017-04-30 19:00] VITALS: BP 127/65
[2017-05-01] MEDS: MORPHINE SULFATE 4 MG/1 ML DISP.SYRIN IV PRN ×7 (02:45→21:41)
[2017-05-01 04:00] VITALS: BP 134/74
[2017-05-01] MEDS: IV NS 1000 ML 1,000 ML IV PRN ×2 (04:15→18:26)
[2017-05-01] MEDS: VANCOMYCIN IV 1 G in PREMIXED 0 EACH IV SCH ×3 (05:04→19:50)
[2017-05-01] MEDS: FERROUS SULFATE 325 MG TABEC PO SCH ×2 (08:35→20:25)
[2017-05-01] MEDS: DOCUSATE SODIUM 100 MG CAPSULE PO SCH ×2 (08:35→20:25)
[2017-05-01] MEDS: PANTOPRAZOLE SODIUM 40 MG TABLET.DR PO SCH (08:35)
[2017-05-01] MEDS: RIFAMPIN 300 MG CAPSULE PO SCH (08:36)
[2017-05-01] MEDS: LIDOCAINE 5% PATCH TD SCH (09:15)
[2017-05-01] MEDS: LACTOBACILLUS RHAMNOSUS GG 1 EACH CAPSULE PO SCH ×2 (09:15→20:25)
[2017-05-01 10:41] LABS: BASOPHILS # (AUTO) 0.1 K/uL (0.0-8.0); BASOPHILS % (AUTO) 0.5 % (0.0-2.0); BILIRUBIN,TOTAL 0.2 mg/dL (0.2-1.0); CREATININE 0.6 mg/dL (0.6-1.3); EOSINOPHILS # (AUTO) 0.5 K/uL (0.0-0.7); EOSINOPHILS % (AUTO) 3.8 % (0.0-7.0); HEMATOCRIT 25.9 % (31.2-41.9); HEMOGLOBIN 8.9 g/dL (10.9-14.3); LYMPHOCYTES # (AUTO) 1.7 K/uL (20.0-40.0); LYMPHOCYTES % (AUTO) 13.9 % (20.5-51.5); MEAN CORPUSCULAR HEMOGLOBIN 31.2 uug (24.7-32.8); MEAN CORPUSCULAR HGB CONC 35 g/dL (32.3-35.6); MEAN CORPUSCULAR VOLUME 90.2 fL (75.5-95.3); MONOCYTES # (AUTO) 0.7 K/uL (2.0-10.0); MONOCYTES % (AUTO) 5.3 % (0.0-11.0); NEUTROPHILS # (AUTO) 9.5 K/uL (1.8-8.9); NEUTROPHILS % (AUTO) 76.5 % (38.5-71.5); PHOSPHOROUS 3.8 mg/dL (2.5-4.9); PLATELET COUNT (AUTO) 782 K/uL (179-408); POTASSIUM 3.7 mmol/L (3.5-5.1); RED BLOOD CELL COUNT(AUTO) 2.87 MIL/uL (3.63-4.92); TOTAL PROTEIN, SERUM 6.3 g/dL (6.4-8.2); WHITE BLOOD COUNT (AUTO) 12.4 K/uL (3.8-11.8)
[2017-05-01 11:51] VITALS: BP 125/71
--- NOTE | 2017-05-01 13:16 | NUR ---
Received handoff report from Vijay, patient on bed eating lunch. No acute distress noted. In stable condition. On contact isolation for MRSA of the blood/sepsis. Dressing intact on left foot. Morphine PRN Q3 Last administered at 1224. Around 1245 hung Vancomycin IVATB @ 133.33 ml/hr infusing well on the left upper arm midline, intact and patent. All comfort measures provided. Call light within reach and answered in a timely manner. Will continue to monitor closely.
--- NOTE | 2017-05-01 14:56 | NUR ---
Clinical Pharmacy Note: Vancomycin Pharmacy to Dose Subjective; To continue vanco in this 51 y/o female for indication of cellulitis. Objective: height: 65'' weight: 133 lb BUN 12 (04/30) Scr 0.7 (04/30) wbc 15.2 (04/30) temp 98.8 trough 17.5 04/27 Assessment/Plan Will continue the same dose(1g ivpb every 7 hrs) for today as renal function appears stable and trough was within range. Will continue to monitor.
[2017-05-01 15:48] VITALS: BP 135/70
[2017-05-01 17:00] LABS: *OCCULT BLOOD STOOL NEGATIVE (NEGATIVE)
--- NOTE | 2017-05-01 19:35 | NUR ---
Received pt in bed, AAO x 4 watching television. Verbally responsive and able to verbalize needs. No acute distress noted. C/O pain R lower foot 11/13, describing it as "constant and aching". Refused repositioning or alternative measures, stating "I will wait for my pain medication when its due." All safety measures maintained. Call light and all personal belongings within reach. Will continue to monitor.
[2017-05-01 20:47] VITALS: BP 129/63
[2017-05-02] MEDS: MORPHINE SULFATE 4 MG/1 ML DISP.SYRIN IV PRN ×8 (01:01→23:51)
[2017-05-02] MEDS: VANCOMYCIN IV 1 G in PREMIXED 0 EACH IV SCH ×3 (02:21→17:13)
[2017-05-02 04:00] VITALS: BP 118/59
[2017-05-02] MEDS: PANTOPRAZOLE SODIUM 40 MG TABLET.DR PO SCH (06:26)
[2017-05-02 07:27] LABS: CREATININE 0.7 mg/dL (0.6-1.3); MAGNESIUM 2.1 mg/dL (1.8-2.4); PHOSPHOROUS 4.7 mg/dL (2.5-4.9); POTASSIUM 4.2 mmol/L (3.5-5.1)
[2017-05-02 07:44] LABS: BASOPHILS # (AUTO) 0.1 K/uL (0.0-8.0); EOSINOPHILS # (AUTO) 0.4 K/uL (0.0-0.7); EOSINOPHILS % (AUTO) 4.1 % (0.0-7.0); HEMATOCRIT 27.2 % (31.2-41.9); HEMOGLOBIN 9.3 g/dL (10.9-14.3); LYMPHOCYTES # (AUTO) 1.7 K/uL (20.0-40.0); LYMPHOCYTES % (AUTO) 16.4 % (20.5-51.5); MEAN CORPUSCULAR HEMOGLOBIN 31.2 uug (24.7-32.8); MEAN CORPUSCULAR HGB CONC 34 g/dL (32.3-35.6); MEAN CORPUSCULAR VOLUME 91.4 fL (75.5-95.3); MONOCYTES # (AUTO) 0.8 K/uL (2.0-10.0); MONOCYTES % (AUTO) 7.9 % (0.0-11.0); NEUTROPHILS # (AUTO) 7.2 K/uL (1.8-8.9); NEUTROPHILS % (AUTO) 70.6 % (38.5-71.5); PLATELET COUNT (AUTO) 881 K/uL (179-408); RED BLOOD CELL COUNT(AUTO) 2.98 MIL/uL (3.63-4.92); WHITE BLOOD COUNT (AUTO) 10.1 K/uL (3.8-11.8)
[2017-05-02] MEDS: RIFAMPIN 300 MG CAPSULE PO SCH (08:04)
[2017-05-02] MEDS: FERROUS SULFATE 325 MG TABEC PO SCH ×2 (08:04→20:49)
[2017-05-02] MEDS: LIDOCAINE 5% PATCH TD SCH (08:04)
[2017-05-02] MEDS: DOCUSATE SODIUM 100 MG CAPSULE PO SCH ×2 (08:04→20:49)
[2017-05-02] MEDS: LACTOBACILLUS RHAMNOSUS GG 1 EACH CAPSULE PO SCH ×2 (08:04→20:49)
[2017-05-02] MEDS: IV NS 1000 ML 1,000 ML IV PRN (09:30)
[2017-05-02 11:25] VITALS: BP 131/72
--- NOTE | 2017-05-02 13:48 | NUR ---
Clinical Pharmacy Note: Vancomycin Pharmacy to Dose Subjective; To continue vanco in this 51 y/o female for indication of cellulitis. Objective: height: 65'' weight: 133 lb BUN 13 Scr 0.7 wbc 10.1 temp 99.1 trough 17.5 04/27 Assessment/Plan Will continue the same dose of vanco 1gm ivpb every 7 hrs for today as renal function appears stable. Will order a preat vanco trough for 05/03 at 1300 to ensure therapeutic range. Will continue to monitor.
[2017-05-02 16:13] VITALS: BP 132/80
[2017-05-02 19:00] VITALS: BP 137/74
--- NOTE | 2017-05-02 21:00 | NUR ---
received to care, lying in bed, pleasant upon approach. remains on contact isolation. right foot dressing remains intact. IV ms was given at 2034 for right foot pain 11/13/ as of 2099, she states good relief, 06/16. call light in reach. will continue to monitor closely.
--- NOTE | 2017-05-02 21:10 | NUR ---
pt was seen by Dr Morrissey. right foot dressing was irrigated and dressed by him, at this time. pt tolerated procedure well.
[2017-05-03] MEDS: IV NS 1000 ML 1,000 ML IV PRN ×2 (00:18→16:16)
[2017-05-03] MEDS: VANCOMYCIN IV 1 G in PREMIXED 0 EACH IV SCH ×4 (00:18→20:19)
[2017-05-03] MEDS: MORPHINE SULFATE 4 MG/1 ML DISP.SYRIN IV PRN ×7 (03:13→22:08)
[2017-05-03 04:00] VITALS: BP 123/69
--- NOTE | 2017-05-03 05:44 | NUR ---
Pt slept intermittently throughout the shift. No acute distress noted. Complained of right foot pain, medicated with morphine PRN. No SOB noted. Midline on JAVON intact and patent. Kept clean, dry and comfortable. Call light within reach. All needs attended.
[2017-05-03] MEDS: PANTOPRAZOLE SODIUM 40 MG TABLET.DR PO SCH (06:19)
[2017-05-03 06:37] LABS: BASOPHILS # (AUTO) 0.1 K/uL (0.0-8.0); BASOPHILS % (AUTO) 1.3 % (0.0-2.0); EOSINOPHILS # (AUTO) 0.4 K/uL (0.0-0.7); EOSINOPHILS % (AUTO) 3.6 % (0.0-7.0); HEMATOCRIT 28.9 % (31.2-41.9); HEMOGLOBIN 9.8 g/dL (10.9-14.3); LYMPHOCYTES # (AUTO) 1.7 K/uL (20.0-40.0); LYMPHOCYTES % (AUTO) 16.5 % (20.5-51.5); MEAN CORPUSCULAR HGB CONC 34 g/dL (32.3-35.6); MEAN CORPUSCULAR VOLUME 91.5 fL (75.5-95.3); MONOCYTES # (AUTO) 0.9 K/uL (2.0-10.0); MONOCYTES % (AUTO) 8.5 % (0.0-11.0); NEUTROPHILS % (AUTO) 70.1 % (38.5-71.5); RED BLOOD CELL COUNT(AUTO) 3.16 MIL/uL (3.63-4.92); WHITE BLOOD COUNT (AUTO) 10.1 K/uL (3.8-11.8)
[2017-05-03 07:19] LABS: BILIRUBIN,TOTAL 0.2 mg/dL (0.2-1.0); CREATININE 0.6 mg/dL (0.6-1.3); MAGNESIUM 2.2 mg/dL (1.8-2.4); PHOSPHOROUS 4.6 mg/dL (2.5-4.9); POTASSIUM 4.5 mmol/L (3.5-5.1); TOTAL PROTEIN, SERUM 6.9 g/dL (6.4-8.2)
[2017-05-03 07:29] LABS: PLATELET COUNT (AUTO) 1002 K/uL (179-408)
[2017-05-03 08:31] LABS: BAND % (MANUAL) 2 % (0-10); BASOPHILS % (MANUAL) 1 % (0-2); EOSINOPHILS % (MANUAL) 4 % (0-8); LYMPHOCYTES % (MANUAL) 17 % (20-40); MONOCYTES % (MANUAL) 7 % (2-10); NEUTROPHILS % (MANUAL) 69 % (42-75)
[2017-05-03] MEDS: DOCUSATE SODIUM 100 MG CAPSULE PO SCH ×2 (09:45→20:19)
[2017-05-03] MEDS: LIDOCAINE 5% PATCH TD SCH (09:45)
[2017-05-03] MEDS: LACTOBACILLUS RHAMNOSUS GG 1 EACH CAPSULE PO SCH ×2 (09:45→20:19)
[2017-05-03] MEDS: RIFAMPIN 300 MG CAPSULE PO SCH (09:45)
[2017-05-03] MEDS: FERROUS SULFATE 325 MG TABEC PO SCH ×2 (09:45→20:19)
[2017-05-03 11:37] VITALS: BP 105/64
--- NOTE | 2017-05-03 13:38 | NUR ---
VANCOMYCIN NO PEAK AND TROUGH LEVEL SINCE 04/27/17. OK TO GIVE PER PHARMACY Addendum: 05/03/17 at 1404 by Joy Beltre RN LAB IN TO DRAW BLD FOR P/T WILL GIVE MED ONCE RESULTS ARE AVAILABLE IF WNL
--- NOTE | 2017-05-03 14:36 | NUR ---
PHARMACY CLINICAL NOTES ( VANCOMYCIN DOSING) S: 51 YO female was on Vancomcyin 1gm q7h for cellulitis O: BUN/SCR 19/0.6, WBC 10.1, TEMP 99.6, VANCO LEVEL 24 A/P: will hold the dose due @ 13:30 and will redose Vanco as 1gm q10h for estimated trough of 15 . First dose due @ 20:00. Plan to order trough prior to 4th dose 05/05 ~ 2400. will continue to monitor.
[2017-05-03 15:55] VITALS: BP 114/65
[2017-05-03 19:00] VITALS: BP 126/76
--- NOTE | 2017-05-03 19:30 | NUR ---
RECEIVED PATIENT FROM DAY SHIFT NURSE. SHIFT REPORT AT BEDSIDE. PATIENT A/OX4 LYING COMFORTABLY IN BED WITH NO SIGNS OF PAIN, SOB, OR ACUTE DISTRESS. VITAL SIGNS STABLE AT START OF SHIFT. PERTINENT ASSESSMENT COMPLETED. NOTED WITH JAVON MIDLINE. PATIENT HAS A VANCO TROUGH OF 24.0. WILL CALL PHARMACY & HOLD VANCO ATB UNTIL FURTHER INSTRUCTION. BED IN LOW POSITION X2 SIDE RAILS UP. CALL LIGHT PLACED WITHIN REACH OF PATIENT. WILL CONTINUE TO MONITOR PATIENT THROUGH SHIFT.
--- NOTE | 2017-05-03 20:00 | NUR ---
PHARMACY SAYS ITS OK TO ADMINISTER VANCO AT 1999. THEY ADJUSTED DOSE. WILL CARRY OUT AND MONITOR PATIENT THROUGH SHIFT.
[2017-05-03] MEDS: HYDROXYUREA 500 MG CAPSULE PO SCH (21:00)
[2017-05-03] MEDS: ASPIRIN 81 MG TAB.CHEW PO SCH (21:17)
--- NOTE | 2017-05-03 22:30 | NUR ---
PATIENT SUPPOSE TO START FIRST DOSE OF HYDROXEA 500MG AT 2100. DRUG NOT AVAILABLE PER NURSING FILLING SEPARATOR. WILL ENDORSE TO DAY SHIFT NURSE TO START FIRST DOSE IN THE AM. WILL CONTINUE TO MONITOR PATIENT.
[2017-05-04] MEDS: MORPHINE SULFATE 4 MG/1 ML DISP.SYRIN IV PRN ×7 (01:17→20:46)
[2017-05-04 04:00] VITALS: BP 131/78
[2017-05-04] MEDS: IV NS 1000 ML 1,000 ML IV PRN (04:40)
[2017-05-04] MEDS: VANCOMYCIN IV 1 G in PREMIXED 0 EACH IV SCH ×2 (05:10→16:18)
--- NOTE | 2017-05-04 05:47 | NUR ---
PATIENT SLEPT INTERMITTENTLY THROUGH SHIFT. COMPLAINTS OF RIGHT FOOT PAIN EVERY 3 HOURS. ADMINISTERED PAIN MEDS ORDERED PER MD. PT STABLE THROUGH SHIFT NO SIGNS OF SOB OR ACUTE DISTRESS. ALL NEEDS ATTENDED TO. ALL MEDS ADMINISTERED ORDERED PER MD. SAFETY MEASURES IMPLEMENTED. CALL LIGHT WITHIN REACH OF PT. WILL ENDORSE TO DAY SHIFT NURSE.
[2017-05-04] MEDS: PANTOPRAZOLE SODIUM 40 MG TABLET.DR PO SCH (06:12)
[2017-05-04 07:15] LABS: BILIRUBIN,TOTAL 0.2 mg/dL (0.2-1.0); CREATININE 0.7 mg/dL (0.6-1.3); MAGNESIUM 2.1 mg/dL (1.8-2.4); PHOSPHOROUS 4.2 mg/dL (2.5-4.9); POTASSIUM 4.5 mmol/L (3.5-5.1); TOTAL PROTEIN, SERUM 7.2 g/dL (6.4-8.2)
[2017-05-04 07:26] LABS: BASOPHILS # (AUTO) 0.1 K/uL (0.0-8.0); BASOPHILS % (AUTO) 0.7 % (0.0-2.0); EOSINOPHILS # (AUTO) 0.3 K/uL (0.0-0.7); EOSINOPHILS % (AUTO) 3.8 % (0.0-7.0); HEMATOCRIT 28.8 % (31.2-41.9); HEMOGLOBIN 9.7 g/dL (10.9-14.3); LYMPHOCYTES # (AUTO) 1.7 K/uL (20.0-40.0); LYMPHOCYTES % (AUTO) 18.7 % (20.5-51.5); MEAN CORPUSCULAR HGB CONC 34 g/dL (32.3-35.6); MEAN CORPUSCULAR VOLUME 91.8 fL (75.5-95.3); MONOCYTES # (AUTO) 0.8 K/uL (2.0-10.0); MONOCYTES % (AUTO) 8.4 % (0.0-11.0); NEUTROPHILS # (AUTO) 6.2 K/uL (1.8-8.9); NEUTROPHILS % (AUTO) 68.4 % (38.5-71.5); RED BLOOD CELL COUNT(AUTO) 3.14 MIL/uL (3.63-4.92)
--- NOTE | 2017-05-04 07:45 | NUR ---
received client in bed, awake, alert and oriented times 4. client stated her pain med was due and c/o of right leg pain. morphine was given and tolerated well. client is in bed in a low fowlers position, with no apparent signs and symptoms of SOB, or distress. right leg is offloading. one pillow is underneath the right leg and has a lidocaine patch on it.
[2017-05-04 07:54] LABS: PLATELET COUNT (AUTO) 1194 K/uL (179-408)
[2017-05-04] MEDS: LIDOCAINE 5% PATCH TD SCH (08:51)
[2017-05-04] MEDS: HYDROXYUREA 500 MG CAPSULE PO SCH (08:52)
[2017-05-04] MEDS: RIFAMPIN 300 MG CAPSULE PO SCH (08:53)
[2017-05-04] MEDS: FERROUS SULFATE 325 MG TABEC PO SCH ×2 (08:53→21:00)
[2017-05-04] MEDS: LACTOBACILLUS RHAMNOSUS GG 1 EACH CAPSULE PO SCH ×2 (09:00→21:00)
[2017-05-04] MEDS: ASPIRIN 81 MG TAB.CHEW PO SCH (10:54)
[2017-05-04] MEDS: DOCUSATE SODIUM 100 MG CAPSULE PO SCH ×2 (10:54→21:00)
[2017-05-04 11:07] VITALS: BP 120/71
[2017-05-04 11:55] LABS: BAND % (MANUAL) 1 % (0-10); BASOPHILS % (MANUAL) 1 % (0-2); EOSINOPHILS % (MANUAL) 6 % (0-8); LYMPHOCYTES % (MANUAL) 21 % (20-40); MONOCYTES % (MANUAL) 4 % (2-10); NEUTROPHILS % (MANUAL) 67 % (42-75)
[2017-05-04] MEDS ORDERED: MAGN400O6 PO (13:22)
[2017-05-04] MEDS ORDERED: LACT1CAP57 PO (13:22)
[2017-05-04] MEDS ORDERED: HYDR-3326 PO (13:22)
[2017-05-04] MEDS ORDERED: DOCU100C36 PO (13:22)
[2017-05-04] MEDS ORDERED: LIDO30AD10 TD (13:22)
[2017-05-04] MEDS ORDERED: ASPI81TA31 PO (13:22)
[2017-05-04] MEDS ORDERED: ZOLP5TAB8 PO (13:22)
[2017-05-04] MEDS ORDERED: PANT40TA2 PO (13:22)
[2017-05-04] MEDS ORDERED: FERR325T28 PO (13:22)
[2017-05-04] MEDS ORDERED: RXVAN XX (13:22)
[2017-05-04] MEDS ORDERED: HYDR500C PO (13:22)
[2017-05-04] MEDS ORDERED: ACET325T53 PO (13:22)
--- NOTE | 2017-05-04 14:19 | NUR ---
PHARMACY CLINICAL NOTES ( VANCOMYCIN DOSING) S: To continue Vancomycin dosing on this patient for cellulitis O: BUN/SCR 15/0.7, WBC 9.0, TEMP 99.2,4 A/P: Will continue Vancomycin 1 gram IV every 10hrs and draw trough by 4th (ordered for tomorrow at 0130) for expected trough around 15. Will monitor daily.
[2017-05-04 15:19] VITALS: BP 99/51
[2017-05-04] MEDS: HYDROCODONE/APAP 5-325MG TABLET PO PRN (16:13)
--- NOTE | 2017-05-04 20:12 | NUR ---
CLIENT HAS BEEN ON PAIN MANAGEMENT THROUGHOUT THE DAY. HAS BEEN COMPLIANT. DR CAME TO CHANGE DRESSING, ASSISTED DR TO REINFORCE DRESSING. NO APPARENT SIGNS AND SYMPTOMS OF SOB, OR DISTRESS. DISCOMFORT WHEN MOVING HER LEG. BEING DISCHARGE WITH ORDERS TO [facility]
--- NOTE | 2017-05-04 20:30 | NUR ---
nsg:received patient in bed, awake, no c/o pain or discomfort at this time.dressing on right foot intact.resting in bed comfortably.
--- NOTE | 2017-05-04 21:00 | NUR ---
nsg: patient alert and oriented x3 ambulatory. dressing i on right foot c/d/i. patient c/o pain morphine 4 mg iv given via rn. v/s wnl..ddischarge instruction given. [facility] via [facility] in stable condition. midline on left upper arm patent. no c/o any pain sob or discomfort at this time. charge nurse aware.
[2017-05-05 07:06] LABS: *IMMUNOGLOBULIN G, SERUM 1095 mg/dL (700-1600); IMMUNOGLOBULIN A, SERUM 333 mg/dL (87-352); IMMUNOGLOBULIN M, SERUM 85 mg/dL (26-217)
[2017-05-05 08:06] LABS: HEPATITIS B SURFACE AB Non Reactive (.); HEPATITIS B SURFACE AG Negative (Negative)
[2017-05-08 08:06] LABS: A/G RATIO 0.7 (0.7-1.7); ALBUMIN 2.6 g/dL (2.9-4.4); ALPHA-1-GLOBULIN 0.4 g/dL (0.0-0.4); ALPHA-2-GLOBULIN 1.1 g/dL (0.4-1.0); BETA GLOBULIN 0.9 g/dL (0.7-1.3); GAMMA GLOBULIN 1.4 g/dL (0.4-1.8); GLOBULIN, TOTAL 3.8 g/dL (2.2-3.9); M-SPIKE 0.1 g/dL (Not Observed)
== END 2017-05-04 21:00 | DRG 710 ==
LOC: ER 00:39 → TELE 04:00 → MED 04-23 11:10
PROVIDERS: ADMIT Nurse Practitioner Acute Care; ATTEND Internal Medicine
PROC: 05H633Z Insertion of Infusion Device into Left Subclavian Vein, Percutaneous Approach (ICD-10-PCS; principal; 2017-04-25)
PROC: 0KN Muscles, Release (ICD-10-PCS; 2017-04-27)
PROC: 0KN Muscles, Release (ICD-10-PCS; 2017-04-27)
PROC: 0J9Q3ZZ Drainage of Right Foot Subcutaneous Tissue and Fascia, Percutaneous Approach (ICD-10-PCS; 2017-04-27)
PROC: 30233N1 Transfusion of Nonautologous Red Blood Cells into Peripheral Vein, Percutaneous Approach (ICD-10-PCS; 2017-04-29)
DX: A41.02 Sepsis due to Methicillin resistant Staphylococcus aureus (principal); E43 Unspecified severe protein-calorie malnutrition; G92 Toxic encephalopathy; D68.59 Other primary thrombophilia; K76.89 Other specified diseases of liver; E87.1 Hypo-osmolality and hyponatremia; D62 Acute posthemorrhagic anemia; L03.115 Cellulitis of right lower limb; M79.A21 Nontraumatic compartment syndrome of right lower extremity; E83.39 Other disorders of phosphorus metabolism; B95.62 Methicillin resistant Staphylococcus aureus infection as the cause of diseases classified elsewhere; L03.211 Cellulitis of face; R65.20 Severe sepsis without septic shock; E87.6 Hypokalemia; K42.9 Umbilical hernia without obstruction or gangrene; Z68.22 Body mass index [BMI] 22.0-22.9, adult; E83.52 Hypercalcemia; M86.8X7 Other osteomyelitis, ankle and foot; I34.0 Nonrheumatic mitral (valve) insufficiency; J21.9 Acute bronchiolitis, unspecified; R60.0 Localized edema; D47.3 Essential (hemorrhagic) thrombocythemia; E83.42 Hypomagnesemia; M79.89 Other specified soft tissue disorders
CPT/HCPCS: 36415; 71010; 73630; 73700; 82746; 82784; 83550; 83605; 83735; 84100; 84132; 84155; 84165; 84443; 85018; 85025; 85610; 85651; 85730; 86140; 86334; 86706; 86803; 86850; 86900; 86901; 86920; 87040; 87070; 87077; 87086; 87340; 87806; 93307; 97530; A4217; A4649; A4663; J0696; J1170; J1650; J1885; J2001; J2250; J2270; J2543; J3010; J3370; J3475; J3480; J3490; J7030; J7040; J7060; P9016-BL; P9021; Q0162

== ENCOUNTER 2017-06-07 14:31 | Emergency (ER) | payer OTHER ==
[~2017-06-07] VITALS: Ht 165.1 cm; Wt 68.0 kg
[~2017-06-07 14:31] MED LIST: ACET325T53 PO; ASPI81TA31 PO; DOCU100C36 PO; FERR325T28 PO; HYDR-3326 PO; HYDR500C PO; LACT1CAP57 PO; LIDO30AD10 TD; MAGN400O6 PO; PANT40TA2 PO; RXVAN XX; ZOLP5TAB8 PO
[2017-06-07] MEDS ORDERED: AMIN30LI27 PO (15:01)
[2017-06-07] MEDS ORDERED: ACET325T53 PO (15:01)
[2017-06-07] MEDS ORDERED: MULT-213 PO (15:01)
[2017-06-07] MEDS ORDERED: ASCO-375 PO (15:01)
[2017-06-07] MEDS ORDERED: LIDO30AD10 TD (15:01)
[2017-06-07] MEDS ORDERED: ZINC220C8 PO (15:01)
--- NOTE | 2017-06-07 15:19 | NUR ---
Patient left after verbal ACI by Dr. Pope.
== END 2017-06-07 15:24 | disposition home or self-care (01) ==
LOC: ER 14:32
DX: D47.3 Essential (hemorrhagic) thrombocythemia (principal); L03.115 Cellulitis of right lower limb; Z79.82 Long term (current) use of aspirin
CPT/HCPCS: 99281; A4663

== ENCOUNTER 2017-07-13 14:51 | Emergency (ER) | payer OTHER ==
[~2017-07-13] VITALS: Ht 165.1 cm; Wt 68.0 kg
[~2017-07-13 14:51] MED LIST changes: +AMIN30LI27 PO; +ASCO-375 PO; -ASPI81TA31 PO; -LACT1CAP57 PO; +MULT-213 PO; -RXVAN XX; +ZINC220C8 PO; -ZOLP5TAB8 PO
--- NOTE | 2017-07-13 16:00 | NUR ---
DR. BABIN AT BEDSIDE REMOVED THE SUTURES.
[2017-07-13] MEDS ORDERED: NEOMY/BACITRA/POLYMYXIN B OINT UD PACKET TP ONE ×3 (16:09→16:30)
--- NOTE | 2017-07-13 16:24 | NUR ---
Patient discharged to home in stable conditon. Written and verbal after care instructions given. Patient verbalizes understanding of instructions.PT WALKS IN STEADY GAIT ACCOMPANIED BY
[2017-07-13 16:25] VITALS: BP 139/61
== END 2017-07-13 16:26 | disposition home or self-care (01) ==
LOC: ER 14:52
DX: Z48.02 Encounter for removal of sutures (principal); Z79.891 Long term (current) use of opiate analgesic; Z79.899 Other long term (current) drug therapy
CPT/HCPCS: A4663

== ENCOUNTER 2020-12-28 | Emergency (ER) | payer OTHER ==
[~2020-12-28] VITALS: Ht 165.1 cm; Wt 61.2 kg
[~2020-12-28] MED LIST changes: +ZINC1CAP2 PO; -ZINC220C8 PO
--- NOTE | 2020-12-28 01:05 | NUR ---
Patient discharged to home in stable condition. Written and verbal after care instructions given. Patient verbalizes understanding of instructions. Stressed follow up or return to ER for worsening s/s.
== END 2020-12-28 01:06 | disposition home or self-care (01) ==
LOC: ER 00:04
DX: Z20.2 Contact with and (suspected) exposure to infections with a predominantly sexual mode of transmission (principal)
CPT/HCPCS: A4663

== ENCOUNTER 2021-05-13 21:08 | Emergency (ER) | payer SELFPAY ==
--- NOTE | 2021-05-14 01:40 | NUR ---
Pt not in waiting room.
== END 2021-05-14 01:41 | disposition left against medical advice (07) ==
LOC: ER 21:09
DX: Z53.21 Procedure and treatment not carried out due to patient leaving prior to being seen by health care provider (principal)